=== PATIENT | female | born 1960 | race Caucasian/White ===

== ENCOUNTER 2022-06-27 11:17 | Outpatient (CLI) | payer SELFPAY ==
--- NOTE | 2022-06-27 11:32 | XR_ITS ---
WS: [id number] Right shoulder, 4 views, 06/27/2022 Clinical Data: [place] injury Comparison: None. Findings: No fractures or dislocations are seen. The AC joint is normal. There is minimal osteoarthritic spurri ng of the inferior right glenoid rim and lesser tuberosity. The adjacent right clavicle, right scapul a and ribs are normal. The soft tissues are unremarkable. There is an old fracture of the posterior lateral right seventh rib. XR/XR shoulder RT min 2V* [id number] Impression: Negative for right shoulder fracture.
== END 2022-06-27 11:18 | disposition home or self-care (01) ==
PROVIDERS: Visit Provider Registered Nurse Neonatal Intensive Care
DX: S49.90XA Unspecified injury of shoulder and upper arm, unspecified arm, initial encounter (principal); X58.XXXA Exposure to other specified factors, initial encounter
CPT/HCPCS: 73030

== ENCOUNTER → 2022-10-12 10:57 | Outpatient (BNVA) | payer OTHER, SELFPAY | PROVIDERS: Visit Provider Family Medicine | DX: Z13.6 Encounter for screening for cardiovascular disorders (principal); E03.9 Hypothyroidism, unspecified; E55.9 Vitamin D deficiency, unspecified | CPT/HCPCS: 80053; 80061; 82306; 84443; 85025 ==

== ENCOUNTER 2023-02-06 14:51 | Outpatient (CLI) | payer OTHER, SELFPAY ==
--- NOTE | 2023-02-06 15:29 | MM_ITS ---
WS: [id number] BILATERAL 3D TOMOSYNTHESIS DIGITAL SCREENING MAMMOGRAPHY WITH CAD CLINICAL INFORMATION: SCREEN HISTORY: Screening mammogram. No current complaints. COMPARISON: 2021 TECHNIQUE: Bilateral CC and MLO views. FINDINGS: The breasts are composed of heterogeneous fibroglandular density tissue, which can limit the detectio n of small underlying mass lesions. No suspicious mass, asymmetry, calcifications, or architectural d istortion. No evidence of malignancy. Incidental punctate calcifications. Long-term stability ovoid n odule posterior depth RIGHT breast. IMPRESSION: MM/[place] [id number] BI-RADS: 2-Benign FOLLOW UP: 1 Year Follow-up Recommend return to annual screening mammography.
== END 2023-02-06 14:52 | disposition home or self-care (01) ==
LOC: RAD 14:51
PROVIDERS: PCP Family Medicine; Visit Provider Family Medicine
DX: Z12.31 Encounter for screening mammogram for malignant neoplasm of breast (principal)
CPT/HCPCS: 77063; 77067

== ENCOUNTER 2023-03-14 07:48 | Day surgery (SDC) | payer OTHER, SELFPAY ==
[2023-03-14 08:02] VITALS: BP 146/83; PULSE 84; RESP 16; TEMP 36.4; O2SAT 98; BMI 28.5
[2023-03-14] MEDS: sodium chloride 0.9% 1,000 ML 30 ML IV (08:11)
--- NOTE | 2023-03-14 08:12 | P.HPUD_ITS ---
Surgery/Procedure H&P Update DATE OF PROCEDURE: March 14, 2023 DATE H&P PERFORMED: 02/26/23 H&P UPDATE INFORMATION: I have reviewed H&P completed within last 30 days, I have examined patient prior to procedure, No changes to prior documentation and H&P is in [facility] EMR on date indicated PLANNED PROCEDURE: Operation Date: 03/14/23 08:50 Proposed Procedures p 29032 colon G0121 screen colon A risk z12.11(Not Applicable) - Jacky Heard MD
--- NOTE | 2023-03-14 08:24 | P.ANESASSM_ITS ---
Pre-Anesthetic Assessment Height/Weight: Height 1.55 m Weight 68.492 kg Temp Pulse Resp BP Pulse Ox O2 Del Method 97.6 F 84 16 146/83 98 Room Air 03/14/23 08:02 03/14/23 08:02 03/14/23 08:02 03/14/23 08:02 03/14/23 08:02 03/14/23 08:02 Preop Diagnosis: Screening Operation Date: 03/14/23 08:50 Proposed Procedures p 86326 colon G0121 screen colon A risk z12.11(Not Applicable) - Jacky Heard MD Was Beta Denise taken within 24 hours: N/A Was Clonidine taken within 24 hours: N/A Last intake: Intake Last Liquid Date 03/13/23 Last Liquid Time 20:00 Last Solid Date 03/12/23 Last Solid Time 20:00 Social No alcohol and No tobacco Exam alert, oriented x 3, clear to auscultation bilaterally and regular rate & rhythm Airway Submandibular: within normal limits Cervical ROM: within normal limits Mallampati: Class II Dentition: full History/ROS No significant history except as noted and No significant complaints Pulmonary None reported CV/HEM None reported None reported Hepatic None reported GI None reported Metabolic None reported Musc/skel None reported Neuropsych None reported Anesthetic Plan ASA status: 1 Anesthesia: Anesthesia Evaluation and MAC Risk of > 500 ml blood loss (7ml/kg in children): No Medications/Allergies Home Medications Medication Instructions Recorded Confirmed Last Taken Type levothyroxine 25 mcg tablet 25 mcg PO DAILY #90 tabs 10/14/22 03/14/23 03/13/23 Rx citalopram 20 mg tablet 20 mg PO DAILY #90 tabs 02/11/23 03/14/23 03/13/23 Rx Allergies Allergy/AdvReac Type Severity Reaction Status Date / Time codeine Allergy ADR-Itching Verified 03/13/23 10:11 Current Medications Generic Name Dose Route Start Last Admin Trade Name Freq PRN Reason Stop Dose Admin Sodium Chloride 1,000 mls @ 30 mls/hr 03/14/23 08:00 03/14/23 08:11 Sodium Chloride 0.9% IV 30 mls/hr .Q24H [place] Administration PFSH Anesthesia Medical History Depression Acquired hypothyroidism Surgical History (Updated 02/26/23 @ 08:39 by AUSTYN Harvey) No pertinent past surgical history Family History Grandmother Cancer breast CA/ Brain CA Grandmother CAD (coronary artery disease) Grandfather , No medical issues per pt No problems noted. Mother CAD (coronary artery disease) Father Cancer prostate Social History (Updated 02/26/23 @ 08:38 by AUSTYN Harvey) Smoking and tobacco/nicotine status: current every day tobacco/nicotine user e- cigarettes E-Cigarette Details: with nicotine Data Anesthesia Cardiac Studies: No Data to Display
[2023-03-14 09:16] VITALS: BP 142/86; PULSE 73; RESP 16; TEMP 36.6; O2SAT 97
[2023-03-14 09:26] VITALS: BP 157/94; PULSE 69; RESP 18; O2SAT 98
--- NOTE | 2023-03-14 13:16 | ANE.PACU2 ---
Inpatient post-anesthesia follow up: Airway intact: Yes Vital signs: Temperature 97.9 F Pulse Rate 69 Respiratory Rate 18 Blood Pressure 157/94 Pulse Oximetry 98 Oxygen Delivery Me thod Room Air Oxygen Flow Rate Fraction of Inspir ed Oxygen Hydration adequate: Yes Nausea and vomiting: No Pain level: 2 Mental status: Baseline
== END 2023-03-14 09:43 | disposition home or self-care (01) ==
PROVIDERS: PCP Family Medicine; Visit Provider Surgery
PROC: 0DJD8ZZ Inspection of Lower Intestinal Tract, Via Natural or Artificial Opening Endoscopic (ICD-10-PCS; CPT 45330; 2023-03-14 08:50)
DX: Z12.11 Encounter for screening for malignant neoplasm of colon (principal); K57.30 Diverticulosis of large intestine without perforation or abscess without bleeding; E03.9 Hypothyroidism, unspecified; F17.290 Nicotine dependence, other tobacco product, uncomplicated
CPT/HCPCS: 45330; J2704; J7030

== ENCOUNTER → 2023-07-29 14:13 | Outpatient (BNVA) | payer MEDICARE, OTHER, SELFPAY | PROVIDERS: PCP Family Medicine; Visit Provider Family Medicine | DX: F33.1 Major depressive disorder, recurrent, moderate (principal); E03.9 Hypothyroidism, unspecified | CPT/HCPCS: 84443 ==

== ENCOUNTER → 2024-01-03 12:26 | Outpatient (BNVA) | payer MEDICARE, SELFPAY | DX: E03.9 Hypothyroidism, unspecified (principal) | CPT/HCPCS: 80053; 84439; 84443 ==

== ENCOUNTER 2024-02-12 14:23 | Outpatient (CLI) | payer MEDICARE, SELFPAY ==
--- NOTE | 2024-02-12 14:30 | MM_ITS ---
WS: [id number] BILATERAL 3D TOMOSYNTHESIS DIGITAL SCREENING MAMMOGRAPHY WITH CAD CLINICAL INFORMATION: screening HISTORY: Screening mammogram. No current complaints. COMPARISON: 2022 TECHNIQUE: Bilateral CC and MLO views. FINDINGS: The breasts are composed of heterogeneous fibroglandular density tissue, which can limit the detectio n of small underlying mass lesions. No suspicious mass, asymmetry, calcifications, or architectural d istortion. No evidence of malignancy. Long-term stability ovoid nodule posterior depth RIGHT breast MM/MM scr tomosynthesis [id number] IMPRESSION: DENSITY: The breasts are heterogeneously dense, which may obscure small masses. BI-RADS: 2 - Benign FOLLOW UP: 1 Year Follow-up Recommend return to annual screening mammography.
== END 2024-02-12 14:24 | disposition home or self-care (01) ==
LOC: RAD 14:25
DX: Z12.31 Encounter for screening mammogram for malignant neoplasm of breast (principal)
CPT/HCPCS: 77063; 77067

== ENCOUNTER → 2024-07-29 15:45 | Outpatient (BNVA) | payer BC, SELFPAY | DX: E03.9 Hypothyroidism, unspecified (principal); Z13.6 Encounter for screening for cardiovascular disorders; E55.9 Vitamin D deficiency, unspecified | CPT/HCPCS: 80053; 80061; 82306; 84439; 84443 ==